=== PATIENT | female | born 1970 ===

== ENCOUNTER 2017-01-08 11:52 | Inpatient (IN) ==
[2017-01-08] MEDS ORDERED: MORPHINE IV ONE (12:03)
[2017-01-08] MEDS ORDERED: ZOFRAN IV ONE (12:03)
[2017-01-08] MEDS ORDERED: NS 1,000 ML IV ONE ×2 (12:03→15:44)
--- NOTE | 2017-01-08 12:52 | Diag Imaging Result Doc PS360 ---
EXAM: ABDOMEN FLAT/UPRIGHT HISTORY: Abd pain/colitis TECHNIQUE: Two views COMMENT: There is gastric small bowel and colonic gas is a nonspecific pattern. There are surgical clips in the right upper quadrant. There is a phlebolith in the left side of the pelvis. No evidence organomegaly or mass is present. The regional skeleton appears to be intact. IMPRESSION: Nonspecific abdomen. Electronically signed by Hilario Canales 01/08/2017 12:50 PM
[2017-01-08 12:55] LABS: MANUAL DIFF NEEDED? NO
[2017-01-08 13:06] LABS: BASO% 0.2 % (0.0-0.8); EOS# 0.22 X1000 (0.0-0.7); EOS% 1.8 % (0.0-10.0); HEMOGLOBIN 12.6 g/dL (12.0-16.0); IMM GRAN# 0.04 X1000 (0.0-0.04); IMM GRAN% 0.3 % (0.0-0.5); LYMPH# 1.72 X1000 (1.2-3.4); LYMPH% 14.5 % (20.5-51.1); MCH 30.7 PG (27-31); MCV 87.8 FL (81-99); MONO# 1.54 X1000 (0.11-0.59); MONO% 12.9 % (1.7-9.3); MPV 9.3 FL (7.4-10.4); NEUT% 70.3 % (42.2-75.2); PLT 368 X1000 (130-400)
[2017-01-08 13:28] LABS: AGAP 15; ALBUMIN 3.6 g/dL (3.5-5.0); ALKALINE PHOSPHATASE 304 U/L (32-104); AMYLASE 21 U/L (20-200); BUN 5 mg/dL (8-22); CALCIUM 8.5 mg/dL (8.8-10.2); CHLORIDE 100 mmol/L (98-107); COSMO 272; GOT 260 U/L (10-30); GPT 331 U/L (10-36); LIPASE 10 U/L (13-60); MAGNESIUM 1.8 mg/dL (1.5-2.7); POTASSIUM 3.4 mmol/L (3.5-5.1); SODIUM 138 mmol/L (136-145); TCO2 23 mmol/L (25-35); TOTAL BILIRUBIN 0.79 mg/dL (0.20-1.00); TOTAL PROTEIN 7.1 g/dL (6.3-8.3)
[2017-01-08 14:00] LABS: URINE CULTURE NEEDED? NO; URINE MICRO REVIEW NEEDED? NO; URINE SOURCE CLEAN CATCH
[2017-01-08 14:06] LABS: UR EPITHELIAL CELLS <10 /HPF (<10); URINE BACTERIA NEGATIVE /HPF; URINE RBC <10 /HPF (<10); URINE WBC <10 /HPF (<10)
[2017-01-08 14:07] LABS: BILIRUBIN URINE NEGATIVE (NEGATIVE); BLOOD URINE SMALL (NEGATIVE); COLOR YELLOW; GLUCOSE URINE NEGATIVE (NEGATIVE); LEUKOCYTES URINE NEGATIVE (NEGATIVE); NITRITE URINE NEGATIVE (NEGATIVE); PH URINE 5.5; PROTEIN URINE NEGATIVE (NEGATIVE); SP GRAVITY URINE 1.009; TURBIDITY URINE CLEAR (CLEAR); UROBILINOGEN URINE NORMAL (NORMAL)
--- NOTE | 2017-01-08 14:07 | PROVIDER DOCUMENTATION ---
This chart was entered by Gabby Hunter, acting as scribe for Charles Correa MD. HPI-General Adult - General Chief Complaint: Diarrhea Stated Complaint: RECHECK Time Seen by Provider: 01/08/17 11:56 Source: patient Allergies/Adverse Reactions: Patient Allergies Allergy/AdvReac Type Severity Reaction Status Date / Time No Known Allergies Allergy Verified 01/07/17 12:16 Home Medications: Home Medication List Medication Instructions Recorded Confirmed Last Taken Type Hydrocodone/APAP 7.5 mg/325 mg 1 each PO Q6H PRN PRN #15 tablet 01/07/1701/08/17 Rx [[place]-7.5] Levofloxacin [Levaquin] 750 mg PO DAILY #10 tablet 01/07/17 01/08/17 01/08/17 Rx Metronidazole [Flagyl] 500 mg PO TID #30 tablet 01/07/17 01/08/17 01/08/17 Rx Ondansetron Odt [Zofran 8Mg Odt] 8 mg PO Q8H PRN PRN #10 tablet 01/07/1701/08/17 Rx - History of Present Illness -Gen Adult Nature of Presenting Problems: pt is a 46 year old female present to the ER with a cc of more episodes of diarrhea. Pt came into the ER yesterday and was seen by DR. Correa. Pt was discharged on flagyl and Levaquin for a diagnosis of Right sided colitis, and C. Diff. Pt and Dr. Correa spoke by telephone this morning and was told to stop the levaquin and continue the Flagyl because of c. diff positive antigen. Pt was on 4 different antibiotics from a dentist because of a dental infection. Her diarrhea started 4 days ago. pt states after being seen in the Er yesterday she 7-8 episodes of diarrhea Location of Pain/Injury: reports: abdomen Pain Radiation: reports: no radiation Quality of Pain: reports: cramping Severity: reports: moderate Onset/Duration: reports: 4 days ago Timing: reports: still present Context/Activities at Onset: reports: none Modifying Factors: improves with: nothing Associated Symptoms: reports: diarrhea Similar Symptoms Previously?: Yes Recently seen or treated by another doctor?: Yes Review of Systems - Adult - REVIEW OF SYSTEMS - ADULT Constitutional: reports: no symptoms reported Eyes: reports: no symptoms reported Ears, Nose, Mouth & Throat: denies: tinnitus Cardiovascular: denies: chest pain, irregular heart rate, orthopnea Respiratory: denies: chronic cough, cough, dyspnea on exertion Gastrointestinal: reports: abdominal pain, diarrhea. denies: constipation, difficulty swallowing, frequent heartburn, vomiting Genitourinary: reports: no symptoms reported Musculoskeletal: reports: no symptoms reported Integumentary: reports: no symptoms reported Neurological: reports: no symptoms reported Psychiatric: reports: no symptoms reported Endocrine: reports: no symptoms reported Hematologic/Lymphatic: reports: no symptoms reported Allergic/Immunologic: reports: no symptoms reported All Other Systems: Reviewed and Negative Past History - Adult - PAST MEDICAL HISTORY-ADULT Review of Records: reports: Old Records Reviewed, Nursing Assessment Review Gastrointestinal: reports: colitis - IMMUNIZATION STATUS Childhood Immunizations: See Nurse Assessment Flu Vaccine: See Nurse Assessment Physical Exam-General - PHYSICAL EXAM-ADULT Initial Vital Signs Reviewed: Yes - CONSTITUTIONAL General Appearance: appears well, alert - EYES Eyes: pink conjunctivae - HEAD, EARS, NOSE, MOUTH & THROAT HENMT: moist mucous membranes, normal ENT inspection, TMs normal, pharynx normal - NECK Neck: non-tender, full range of motion - RESPIRATORY Respiratory: chest non-tender, lungs clear, normal breath sounds, no pleuratic chest pain, no respiratory distress, no accessory muscle use - CARDIOVASCULAR Cardiovascular: normal peripheral pulses, regular rate, rhythm - GASTROINTESTINAL (ABDOMEN) Abdominal Exam: normal bowel sounds, soft, tenderness (Generalized tenderness, right side more tender than the left). negative: guarding, rebound - LYMPHATIC Lymphatic: no adenopathy - MUSCULOSKELETAL Back Exam: normal inspection, no CVA tenderness, no vertebral tenderness Extremity: normal range of motion, non-tender, normal gait - SKIN Integumentary: normal color, normal turgor, warm/dry - NEUROLOGIC Neurologic: grossly normal - PSYCHIATRIC Psych/Mental Status: normal mood/affect, normal thought content, normal thought process, oriented x 3 Progress - PLAN OF CARE/RESULTS Progress/Plan/Lab Results: Vital Signs - 8 hr 01/08/17 11:55 Temperature 98.2 F Pulse Rate 85 Respiratory Rate 18 Blood Pressure 120/67 O2 Sat by Pulse Oximetry 100 Result Diagrams: 01/08/17 12:30 01/08/17 12:30 - XRAY 1 XRAY: Bilateral XRAY Study: Abdomen (abdomen flat/upright) Impression: Normal (there is a gastric small bowel and colonic gas is a nonspecific pattern. there are surgical clips in the RUQ. There is a phlebolith in the left side of the pelvis. no evidence organomegaly or mass is present. The regional skeleton appears to be intact) XRAY Interpretation: nonspecific abdomen ([place]) - CONSULTS/PCP/HOSPITALIST Notification #1 *Consult/PCP/Hospitalist*: Dr. Amaral Time Discussed: 14:05 Reason/Comments: Admit to Dr. Amaral Consult Disposition: Admit Departure - Departure Time of Disposition Decision: 14:05 DIAGNOSIS: C. difficile colitis, Dehydration Disposition: ADMITTED INPATIENT 09 Certified Medical Emergency: Emergent Condition: Stable Referrals and Follow-Ups: Radha Chopra [Primary Care Provider] - - Critical Care Note This patient required my direct & personal management of CC.: No This chart was documented by the indicated scribe, (Gabby Hunter) and accurately reflects the services I performed and decisions made by me, Charles Correa MD, as attested by the provider's signature.
[2017-01-08] MEDS ORDERED: NS 1,000 ML IV SCH (14:41)
[2017-01-08] MEDS: VANCOCIN PO SCH ×2 (15:21→20:54)
[2017-01-08] MEDS: PROTONIX IV SCH (16:50)
--- NOTE | 2017-01-08 17:36 | HISTORY AND PHYSICAL ---
CHIEF COMPLAINT: Abdominal pain. Diarrhea. HISTORY OF PRESENT ILLNESS: This is a 46-year-old female who presented to the emergency room complaining of a week of abdominal pain with 4 days of diarrhea. She stated that diarrhea day before yesterday was just clear water and that she was having as many as 15 bowel movements a day. Of note, she has taken 4 rounds of antibiotics since October for a dental infection and this started after completing the 4th antibiotic. We are not sure what exactly the names of antibiotics are, what order she was taking them in. She presented to the emergency room 24 hours ago for evaluation. She was given IV fluids. Stool specimens were obtained. After IV fluids she felt better. Therefore, she was discharged and instructed to call if symptoms increased. Today after reviewing the patient's CT scan and C. difficile positive lab results she called and asked the patient to come back in for reevaluation and it was decided the patient should be admitted for further evaluation and treatment. The patient has dry mucous membranes. She is having leg cramps. She is unable to have any p.o. intake stating that soon after any p.o. intake she has a bowel movement. She will be admitted for rehydration, antibiotic and pain and nausea control. PAST MEDICAL HISTORY: Diverticulitis 7 years ago. PAST SURGICAL HISTORY: Cholecystectomy. SOCIAL HISTORY: She denied illicit drug use. She has rare alcohol use and she smokes daily. ALLERGIES: No known drug allergies. HOME MEDICATIONS: Denies. REVIEW OF SYSTEMS: A 14 point review of systems is discussed with patient with pertinent positives stated in HPI. She denied any chest pain, palpitations, dizziness, syncope, cough, fever, chills, PND, orthopnea, any black or bloody vomitus, black or bloody stools, any hematuria, dysuria, frequency, urgency. PHYSICAL EXAMINATION: GENERAL: This is a 46-year-old female who is sitting in the bed in no distress. VITAL SIGNS: Blood pressure is 120/68 with a heart rate of 75, respirations are 16, temperature is 98.2 degrees with oxygen saturations of 96-98% on 2 L nasal cannula. HEENT: Head is normocephalic, atraumatic. Pupils equal, round, react to light. EOMs are intact. Sclerae anicteric. Mucous membranes are dry. NECK: Supple. Trachea midline. CARDIOVASCULAR: Regular rate and rhythm, S1, S2 appreciated. PULMONARY: Breath sounds are clear. No increased work of breathing noted. BACK: No CVAT. No spine tenderness. GASTROINTESTINAL: Abdomen is soft with right lower quadrant tenderness, nondistended with bowel sounds in all 4 quadrants. EXTREMITIES: No clubbing, cyanosis or edema. Pulses are palpable x4. Calves nontender. MUSCULOSKELETAL: Good range of motion of joints. NEUROLOGIC: She is alert and oriented x3. DIAGNOSTICS: WBC is 11.9 with hemoglobin of 12.6, hematocrit 36 and platelets of 368,000. Sodium is 138, potassium 3.4, BUN 5, creatinine 0.6 with a glucose of 80, AST is 260, ALT 331 and alkaline phosphatase 304 with a lipase of 10. Abdominal x-ray reveals gastric small bowel and colonic gas in a nonspecific pattern. Nonspecific abdomen. C. difficile was positive. ASSESSMENT: 1. Clostridium difficile colitis. 2. Dehydration secondary to #1. 3. Elevated liver function tests. PLAN: She will be admitted to the hospital. She will be NPO at present. We will give a gentle 250 mL bolus an hour for 4 hours and decrease fluids to 125 an hour. Will monitor electrolytes, replete as appropriate, morphine and Zofran IV for pain and nausea control. Liver enzymes were elevated somewhat yesterday in the ER visit, they are little more today. The patient has been taking [place] and she is dehydrated. She is continued with diarrhea with very little p.o. intake. She stated over the last 24 hours probably to her only p.o. intake was what she took to take the medicine. Tylenol with dehydration could be a factor, will hold any Tylenol or any medications that could be liver toxic. Will hydrate and recheck her LFTs in the morning. Further treatments pending hospital course. Dictated by THOM Hobbs for Joshua Rain MD cc: THOM Hobbs MD
[2017-01-08] MEDS: ZOFRAN IV PRN (20:54)
[2017-01-08] MEDS: MORPHINE IV PRN (20:54)
[2017-01-09] MEDS: VANCOCIN PO SCH ×4 (02:27→20:10)
[2017-01-09] MEDS: MORPHINE IV PRN (05:31)
[2017-01-09] MEDS: ZOFRAN IV PRN ×3 (05:31→15:15)
[2017-01-09 07:05] LABS: HEMATOCRIT 35.5 % (37.0-47.0); MCH 30.7 PG (27-31); MCHC 33.8 g/dL (33-37); MCV 90.8 FL (81-99); MPV 9.4 FL (7.4-10.4); RBC 3.91 XMIL (4.2-5.4)
[2017-01-09 07:30] LABS: AGAP 17; ALBUMIN 3.3 g/dL (3.5-5.0); ALKALINE PHOSPHATASE 270 U/L (32-104); BUN 6 mg/dL (8-22); CALCIUM 8.1 mg/dL (8.8-10.2); CHLORIDE 104 mmol/L (98-107); COSMO 277; GOT 120 U/L (10-30); GPT 224 U/L (10-36); POTASSIUM 4.1 mmol/L (3.5-5.1); SODIUM 141 mmol/L (136-145); TCO2 20 mmol/L (25-35); TOTAL BILIRUBIN 0.55 mg/dL (0.20-1.00); TOTAL PROTEIN 6.1 g/dL (6.3-8.3)
[2017-01-09] MEDS: PROTONIX IV SCH (15:15)
--- NOTE | 2017-01-09 19:05 | PROGRESS NOTE ---
DATE: 01/09/2017 SUBJECTIVE: Today Ms. Acosta referred to be doing a lot better. According to her she had a multiple bowel movements yesterday but since 3 a.m. today she has not had any more bowel movement. OBJECTIVE: Vital Signs: Blood pressure 95/56, pulse of 71, respirations 18, temperature is 98.2 degrees. General: Ms. Acosta is a 46-year-old female. She was in bed. Did not seem to be in any remarkable distress. HEENT: Mucosa is pink and moist. Anicteric. Acyanotic. Neck: Supple. Chest: Good air entry bilateral. No crepitations. No rhonchi. Cardiovascular: Regular rate and rhythm. There is no murmurs, no rubs, no gallops. Abdomen: Soft, mildly tender all over. The bowel sounds is slightly hyperreactive. Extremities: No pedal edema. TUMBLER PLATER: Patient is alert and oriented x4. There is no focal neurological deficit. LABORATORY DATA: WBC is down to 10.20, hemoglobin is 12.0, platelet count of 334,000. Chemistry is reviewed. Sodium is 141, potassium is 3.1, chloride is 104, bicarb is 20. The AST is down to 120, ALT is down to 224, alkaline phosphatase also down to 270, total bilirubin 0.55. ASSESSMENT: 1. Clostridium difficile colitis. Will continue with the current p.o. vancomycin. 2. Dehydration secondary to #1. 3. Acute hepatitis likely due to Tylenol abuse. We however did hepatitis panel which we are still awaiting. 4. History of multiple dental abscesses. Patient has had multiple courses of antibiotics for the same. We would defer the management of this to her dental team when she gets discharged. So in general I think Ms Acosta is progressively improving. Diarrhea seems to have stopped since 3 a.m. today. We are going to start her on clear liquids. Continue with oral vancomycin and also the IV hydration. cc: Joshua Rain MD
[2017-01-10] MEDS: ZOFRAN IV PRN ×3 (02:09→20:05)
[2017-01-10] MEDS: VANCOCIN PO SCH ×4 (02:09→19:57)
[2017-01-10 07:17] LABS: AGAP 13; ALBUMIN 3.4 g/dL (3.5-5.0); ALKALINE PHOSPHATASE 238 U/L (32-104); BUN 3 mg/dL (8-22); CALCIUM 8.3 mg/dL (8.8-10.2); CHLORIDE 106 mmol/L (98-107); COSMO 280; GOT 53 U/L (10-30); GPT 157 U/L (10-36); POTASSIUM 3.8 mmol/L (3.5-5.1); SODIUM 142 mmol/L (136-145); TCO2 23 mmol/L (25-35); TOTAL BILIRUBIN 0.46 mg/dL (0.20-1.00); TOTAL PROTEIN 6.4 g/dL (6.3-8.3)
[2017-01-10 07:19] LABS: HEMOGLOBIN 12.5 g/dL (12.0-16.0); MANUAL DIFF NEEDED? YES
[2017-01-10] MEDS: MORPHINE IV PRN ×2 (08:01→14:48)
[2017-01-10 10:20] LABS: BASO% 1.1 % (0.0-0.8); EOS# 0.29 X1000 (0.0-0.7); EOS% 3.8 % (0.0-10.0); HEMATOCRIT 36.2 % (37.0-47.0); IMM GRAN# 0.29 X1000 (0.0-0.04); IMM GRAN% 3.8 % (0.0-0.5); LYMPH# 2.12 X1000 (1.2-3.4); LYMPH% 27.9 % (20.5-51.1); MCH 30.3 PG (27-31); MCHC 34.5 g/dL (33-37); MCV 87.7 FL (81-99); MONO# 0.83 X1000 (0.11-0.59); MONO% 10.9 % (1.7-9.3); MPV 9.4 FL (7.4-10.4); NEUT% 52.5 % (42.2-75.2); PLT 387 X1000 (130-400); RBC 4.13 XMIL (4.2-5.4)
[2017-01-10 10:25] LABS: EOS 4 % (1-10); LYMPHS 16 % (21-51); MONO 12 % (1-9)
[2017-01-10 10:38] LABS: HEPATITIS PROFILE ACUTE SEE COMMENTS
[2017-01-10] MEDS: SODIUM CHLORIDE 0.9% INJ SCH (14:49)
[2017-01-10] MEDS: PROTONIX IV SCH (14:49)
--- NOTE | 2017-01-10 14:57 | PROGRESS NOTE ---
DATE: 01/10/2017 SUBJECTIVE: Today, Ms. Acosta refers to be doing fine. According to her, she had multiple bowel movements early on today. OBJECTIVE: Vital signs: Blood pressure is 126/67, pulse 59, respiration is 19, temperature 97.7 degrees. General: Ms. Acosta is a 46-year-old female. She is in bed, not in distress. Mucosa is pink and moist. Anicteric and acyanotic. Neck: Supple. Chest: Clear. Cardiovascular: Regular rate and rhythm. Abdomen: Soft, nontender. Extremities: No pedal edema. CONVERTING SUPERVISOR: Patient is alert and oriented x4. No focal neurological deficit. LABORATORY DATA: WBC is down to 7.59, hemoglobin is 12.6, platelet count of 387,000. There are no bands on peripheral smear. Chemistry is reviewed, unremarkable except for liver enzymes. AST is 53, ALT is 157, ALT is 238. Serology: Hepatitis panel was completely negative. ASSESSMENT: 1. Clostridium difficile colitis. The patient continues to be on the p.o. vancomycin and is improving. 2. Dehydration secondary to #1. Improved. 3. Acute hepatitis suspected to be due to excess use of Tylenol. Liver enzymes are on downward trend. 4. History of dental abscesses. That is the reason why patient was on multiple cycles of antibiotics. We will defer this for her outpatient dental team. PLAN: In general, Ms. Acosta is doing a whole lot better. We will continue with the oral vancomycin. She has been encouraged to drink some more to maintain adequate hydration, and we are going to advance her diet to a gastrointestinal soft. cc: Joshua Rain MD
[2017-01-11] MEDS: VANCOCIN PO SCH ×4 (02:21→22:27)
[2017-01-11] MEDS: ZOFRAN IV PRN ×4 (02:21→22:27)
[2017-01-11 06:36] LABS: BASO% 0.6 % (0.0-0.8); EOS# 0.42 X1000 (0.0-0.7); EOS% 4.1 % (0.0-10.0); HEMATOCRIT 37.9 % (37.0-47.0); IMM GRAN# 0.46 X1000 (0.0-0.04); IMM GRAN% 4.5 % (0.0-0.5); LYMPH% 25.6 % (20.5-51.1); MANUAL DIFF NEEDED? YES; MCHC 34.3 g/dL (33-37); MCV 87.3 FL (81-99); MONO# 1.19 X1000 (0.11-0.59); MONO% 11.7 % (1.7-9.3); MPV 9.1 FL (7.4-10.4); NEUT% 53.5 % (42.2-75.2); PLT 422 X1000 (130-400); RBC 4.34 XMIL (4.2-5.4)
[2017-01-11 06:51] LABS: AGAP 11; ALBUMIN 3.3 g/dL (3.5-5.0); ALKALINE PHOSPHATASE 197 U/L (32-104); BUN 8 mg/dL (8-22); CALCIUM 8.3 mg/dL (8.8-10.2); CHLORIDE 106 mmol/L (98-107); COSMO 284; GOT 39 U/L (10-30); GPT 117 U/L (10-36); POTASSIUM 3.8 mmol/L (3.5-5.1); SODIUM 143 mmol/L (136-145); TCO2 26 mmol/L (25-35); TOTAL BILIRUBIN 0.21 mg/dL (0.20-1.00); TOTAL PROTEIN 6.5 g/dL (6.3-8.3)
[2017-01-11 07:05] LABS: BANDS 4 % (0-1); EOS 4 % (1-10); LYMPHS 32 % (21-51); MONO 10 % (1-9)
--- NOTE | 2017-01-11 10:47 | PROGRESS NOTE ---
DATE: 01/11/2017 SUBJECTIVE: Today, Ms. Acosta refers to be doing a little better. She continues to have slight abdominal discomfort and also continues to have diarrhea. OBJECTIVE: Vital Signs: Blood pressure is 117/97, pulse of 75, respirations 20, temperature is 98.1 degrees. General: Ms. Acosta is a 46-year-old female. She is in bed. She did not seem to be in any remarkable distress. HEENT: Mucosa is pink and moist. Anicteric. Acyanotic. Neck is supple. Chest was clear. Cardiovascular: Regular rate and rhythm. Abdomen is soft. Mildly tender in the epigastrium and periumbilical area. Bowel sounds are present. Extremities: No pedal edema. REGIONAL CLINICAL RESEARCH ASSOCIATE: The patient is alert and oriented x4. There is no focal neurological deficit. The patient had a total of 12 bowel movements yesterday. So far, she has had 3 bowel movements today. LABORATORY DATA: CBC reviewed, completely normal. Chemistries reviewed, also completely normal. AST is now at 39, ALT is 117. Alkaline phosphatase is 197. All with downward trending. ASSESSMENT: 1. Clostridium difficile colitis. The patient will continue with vancomycin p.o. for a total of 14 days. She still continued to have a remarkable amount of stool. We will add probiotics to see if that helps. 2. Acute hepatitis suspected to be excessive use of Tylenol. Enzymes are on a downward trend. 3. History of dental abscesses. Will defer management to her dental team. 4. Dehydration secondary to #1; it is improved. So, in general, I think Ms Acosta is progressively getting better. We are going to start her on regular diet today. We will also start her on probiotics. Continue with the vancomycin and monitor her output. cc: Joshua Rain MD
[2017-01-11] MEDS: SODIUM CHLORIDE 0.9% INJ SCH (16:13)
[2017-01-11] MEDS: PROTONIX IV SCH (16:13)
[2017-01-11] MEDS: CULTURELLE PO SCH (22:27)
[2017-01-12] MEDS: ZOFRAN IV PRN ×4 (04:38→21:36)
[2017-01-12] MEDS: VANCOCIN PO SCH ×4 (04:38→21:37)
[2017-01-12 06:13] LABS: MANUAL DIFF NEEDED? NO
[2017-01-12 06:18] LABS: BASO% 0.5 % (0.0-0.8); EOS# 0.34 X1000 (0.0-0.7); EOS% 3.5 % (0.0-10.0); HEMOGLOBIN 12.7 g/dL (12.0-16.0); IMM GRAN# 0.37 X1000 (0.0-0.04); IMM GRAN% 3.9 % (0.0-0.5); LYMPH# 2.72 X1000 (1.2-3.4); LYMPH% 28.4 % (20.5-51.1); MCH 30.2 PG (27-31); MCHC 34.3 g/dL (33-37); MCV 88.1 FL (81-99); MONO# 1.28 X1000 (0.11-0.59); MONO% 13.3 % (1.7-9.3); NEUT% 50.4 % (42.2-75.2); PLT 400 X1000 (130-400)
[2017-01-12 06:36] LABS: AGAP 12; ALBUMIN 3.3 g/dL (3.5-5.0); ALKALINE PHOSPHATASE 166 U/L (32-104); BUN 7 mg/dL (8-22); CALCIUM 8.3 mg/dL (8.8-10.2); CHLORIDE 104 mmol/L (98-107); COSMO 283; GOT 53 U/L (10-30); GPT 102 U/L (10-36); SODIUM 143 mmol/L (136-145); TCO2 27 mmol/L (25-35); TOTAL BILIRUBIN 0.29 mg/dL (0.20-1.00); TOTAL PROTEIN 6.1 g/dL (6.3-8.3)
[2017-01-12] MEDS: CULTURELLE PO SCH ×2 (09:26→21:37)
--- NOTE | 2017-01-12 13:02 | PROGRESS NOTE ---
DATE: 01/12/2017 SUBJECTIVE: Today Ms. Acosta referred to be feeling a little stronger. Complains of some cramps in the lower extremities. She refers to have had 5 bowel movements after breakfast and she said it was the same trend yesterday. She had 6 and after that she did not have any more during the entire day. OBJECTIVE: Vital signs: Blood pressure is 120/62, pulse of 63, respirations 20, temperature is 97.9 degrees. Patient is breathing ambient air. General: Ms. Acosta is a 46-year-old female. She is in bed, no distress. HEENT: Mucosa is pink and moist. Anicteric. Acyanotic. Neck: Supple. Chest: Clear. Cardiovascular: Regular rate and rhythm. Abdomen: Soft. Bowel sounds are slightly increased. Extremities: No pedal edema. AERIAL SPRAYER: Patient is alert and oriented x4. There is no focal neurological deficit. LABORATORY DATA: WBC is 9.59, hemoglobin is 12.9, platelet count is 400,000; all within normal range. Chemistry is also reviewed, completely negative. AST is down to 53. ALT is down to 102. Alkaline phosphatase is also down to 116. ASSESSMENT: 1. Clostridium difficile colitis. We will continue oral vancomycin for a total of 14 days. The patient is also on probiotics. 2. Acute hepatitis, suspected to be excess use of Tylenol. Enzymes on downward trend. 3. History of dental abscesses. 4. Dehydration secondary to Clostridium colitis, improved. PLAN: So in general I think Ms. Acosta is improving. We are going to continue with the current antibiotics, adequate oral hydration, the probiotics. If the number of bowel movements continue to be on a downward trend we will be able to discharge her tomorrow. cc: Joshua Rain MD
[2017-01-12] MEDS: PROTONIX IV SCH (15:33)
[2017-01-12] MEDS: SODIUM CHLORIDE 0.9% INJ SCH (15:34)
[2017-01-13] MEDS: ZOFRAN IV PRN ×2 (04:34→09:00)
[2017-01-13] MEDS: VANCOCIN PO SCH ×2 (04:34→09:13)
[2017-01-13 07:41] LABS: AGAP 13; ALBUMIN 3.4 g/dL (3.5-5.0); ALKALINE PHOSPHATASE 158 U/L (32-104); BUN 7 mg/dL (8-22); CALCIUM 8.7 mg/dL (8.8-10.2); CHLORIDE 103 mmol/L (98-107); COSMO 282; GOT 83 U/L (10-30); GPT 115 U/L (10-36); POTASSIUM 4.1 mmol/L (3.5-5.1); SODIUM 143 mmol/L (136-145); TCO2 27 mmol/L (25-35); TOTAL PROTEIN 6.4 g/dL (6.3-8.3)
[2017-01-13 09:13] VITALS: BP 131/72
[2017-01-13] MEDS: CULTURELLE PO SCH (09:13)
--- NOTE | 2017-01-13 09:49 | Diag Imaging Result Doc PS360 ---
EXAM: US GB < RUQ (LIMITED) - 01/13/2017 HISTORY: hepatitis TECHNIQUE: Ultrasound right upper quadrant COMPARISON: None. FINDINGS: Gallbladder surgically absent. The common bile duct is normal caliber at 4 mm. The liver appears normal size and demonstrates relatively homogeneous echotexture. There is no discrete liver lesion identified. Doppler images shows hepatopedal flow in the portal vein. There is no ascites seen in the right upper quadrant. There are no analysis of the right kidney or visualized portions of the pancreas identified. Abdominal aorta appears normal caliber. IMPRESSION: Status post cholecystectomy. Normal caliber common bile duct 4 mm. No visible liver lesion. Electronically signed by Prasanna Martinez 01/13/2017 9:47 AM
[2017-01-13] MEDS ORDERED: VANCOMYCIN ORAL SOLN PO SCH (15:00)
--- NOTE | 2017-01-13 15:17 | DISCHARGE SUMMARY ---
ADMISSION DATE: 01/08/2017 DISCHARGE DATE: 01/13/2017 CONSULTATIONS: None. PERTINENT PROCEDURES: 1. Abdominal ultrasound showed status post cholecystectomy. Normal caliber common bile duct at 4 mm. No visible liver lesion. 2. Abdominal x-ray nonspecific. DISCHARGE DIAGNOSES: 1. Clostridium difficile colitis. We will continue with oral vancomycin for a total of 14 days as well as probiotics. 2. Acute hepatitis, suspected to be excess use of Tylenol. Enzymes have improved. 3. History of dental abscesses. The patient had been on 3-4 rounds of antibiotics which caused the Clostridium difficile. 4. Dehydration secondary to clostridium difficile, improved. HOSPITAL COURSE: Ms. Acosta is a 46-year-old, female who carries a past medical history of diverticulitis seven years ago. She came to the emergency room complaining of abdominal pain for 4 days with diarrhea. She had as many as 15 bowel movements in a day. She has taken 4 rounds of antibiotics since October for a dental infection that started after completing her 4th round of antibiotics. She originally came to the ED before the day of her admission. She was given IV fluids. Stool specimens were obtained and after the IV fluids she felt better. She was discharge and instructed to call if symptoms increased. After reviewing the patient's CT scan and C. diff positive laboratory results she was called and asked to come back in for re-evaluation and it was decided that the patient needed to be admitted for further evaluation and treatment. She was admitted for C. diff colitis, placed on hydration, monitored her electrolytes and replenished as appropriate as well as symptomatic control of her nausea and vomiting. The patient's enzymes were somewhat elevated, believed this was secondary to Tylenol use. The patient had been taking [place], she was dehydrated and continued to have very little p.o. intake. After hydration her liver enzymes have trended down. She was adequately hydrated. She was started on oral vancomycin for which she will continue for a total of 14 days and started on probiotics and her bowel movements are such that she is able to be discharged home today. VITAL SIGNS: Temperature is 97.9 degrees, heart rate 67, respirations 18, blood pressure is 98/60, O2 is 100% on room air. DISCHARGE DIET: GI soft. DISCHARGE MEDICATIONS: 1. [place] 7.5, 1 each p.o. q.6 hours p.r.n. 2. [place] 1 each p.o. b.i.d. 3. Vancomycin oral solution 125 mg p.o. q.6 hours. FOLLOWUP: The patient is being discharged home with self care. She will need to follow up with Dr. Damian as instructed as well as her primary care physician, Radha Chopra in 1 week. The patient can return to the ED for any worsening of symptoms. Discharge time 30 minutes. Dictated by THOM Fitzgerald for Joshua Rain MD cc: MD Radha Arce
== END 2017-01-13 12:29 | disposition home or self-care (01) ==
LOC: ED 11:52 → 3N 11:52 → OBSVTOIN 15:16
PROVIDERS: ATTEND Internal Medicine